=== PATIENT | female | born 1955 | race Caucasian/White ===

== ENCOUNTER 2018-10-18 07:18 | Emergency (ER) | payer OTHER ==
[~2018-10-18] VITALS: Ht 160 cm; Wt 58.1 kg
[2018-10-18] MEDS ORDERED: ALBU0.0912 IH (07:27)
[2018-10-18] MEDS ORDERED: BECL10.62 IH (07:27)
[2018-10-18 07:29] VITALS: BP 130/54
[2018-10-18 08:34] VITALS: BP 112/55
--- NOTE | 2018-10-18 08:39 | NUR ---
Patient discharged with v/s stable. Written and verbal after care instructions given and explained. Patient alert, oriented and verbalized understanding of instructions. Ambulatory with steady gait. All questions addressed prior to discharge. ID band removed. Patient advised to follow up with PMD. Rx of Motrin 600mg, Prednisone 20mg, and Azithromycin 250 mg given. Patient educated on indication of medication including possible reaction and side effects. Opportunity to ask questions provided and answered.
== END 2018-10-18 08:39 | disposition home or self-care (01) ==
LOC: MED 07:18
DX: J18.9 Pneumonia, unspecified organism (principal); J44.9 Chronic obstructive pulmonary disease, unspecified; K21.9 Gastro-esophageal reflux disease without esophagitis; Z79.899 Other long term (current) drug therapy
CPT/HCPCS: 71045; 99283; Q0092

== ENCOUNTER 2018-11-12 07:34 | Emergency (ER) | payer OTHER ==
[~2018-11-12] VITALS: Ht 147.3 cm; Wt 43.1 kg
[~2018-11-12 07:34] MED LIST: ALBU0.0912 IH; BECL10.62 IH
--- NOTE | 2018-11-12 07:40 | NUR ---
PATIENT AMBULATED TO ER BED 7
[2018-11-12 07:54] VITALS: BP 141/75
[2018-11-12] MEDS ORDERED: OMEP20TC10 PO (08:00)
[2018-11-12] MEDS ORDERED: CHOL50005 PO (08:00)
[2018-11-12] MEDS ORDERED: IBUP-2213 PO (08:00)
--- NOTE | 2018-11-12 08:00 | NUR ---
BIB FRIEND. AAO X4 C/O REPEATED DIARRHEA X 2 DAYS WITH SUPRAUMBILICAL BURNING PAIN, NAUSEA, VOMITING TODAY. PT STATES SHE VOMITED X 3, DIARRHEA X2 TODAY. PT DENIES FEVER, SOB. ABDOMEN SOFT, NON TENDER. 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 ER TO EVALUATE PT.
--- NOTE | 2018-11-12 08:09 | NUR ---
DR LAGUNA AT BEDSIDE FOR PT EVALUATION
--- NOTE | 2018-11-12 08:11 | NUR ---
PT UNABLE TO GIVE URINE SPECIMEN AT THIS TIME. WILL TRY AGAIN LATER
[2018-11-12] MEDS ORDERED: NACL 0.9% 1,000 ML IV SCH (08:24)
[2018-11-12] MEDS ORDERED: MORPHINE SULFATE 2 MG/ML SYR IVP ONE (08:25)
[2018-11-12] MEDS ORDERED: ONDANSETRON 4 MG/2 ML VIAL IVP ONE (08:25)
--- NOTE | 2018-11-12 09:02 | NUR ---
INITIATED IV TO RAC 20G, INTACT AND PATENT. BLOOD DRAW ORDERED. CALLED LAB FOR TREATER. PT TOLERATED WELL. IV MEDICATIONS AND IV FLUIDS GIVEN ORDERED.
--- NOTE | 2018-11-12 09:10 | NUR ---
PT STATES SHE CAN'T GIVE URINE SPECIMEN AT THIS TIME.
--- NOTE | 2018-11-12 09:26 | NUR ---
PT AMBULATED TO THE BATHROOM WITH STEADY GAIT. ACCOMPANIED BY FRIEND
[2018-11-12 09:33] LABS: ANION GAP 12.6 (8-16); CARBON DIOXIDE 27.9 mmol/L (21-32); CREATININE 0.8 mg/dL (0.6-1.3); POTASSIUM 4.5 mmol/L (3.5-5.1)
[2018-11-12 09:46] LABS: ALBUMIN 3.5 g/dL (3.4-5.0); TOTAL BILIRUBIN 0.4 mg/dL (0.0-1.0)
[2018-11-12 09:55] LABS: BASOPHILS % (AUTO) 0.5 % (0.0-2.0); EOSINOPHILS % (AUTO) 0.2 % (0.0-4.0); HEMATOCRIT 38.1 % (36-48); HEMOGLOBIN 12.1 g/dL (12.0-16.0); LYMPHOCYTES # (AUTO) 0.9 K/uL (2.5-16.5); LYMPHOCYTES % (AUTO) 18.2 % (20.5-51.1); MEAN CORPUSCULAR HEMOGLOBIN 25 pg (27-31); MEAN CORPUSCULAR HGB CONC 32 g/dL (33-37); MEAN CORPUSCULAR VOLUME 79.7 fL (80-94); MONOCYTES # (AUTO) 0.3 K/uL (0.8-1.0); MONOCYTES % (AUTO) 5.6 % (1.7-9.3); NEUTROPHILS # (AUTO) 3.9 K/uL (1.8-7.7); NEUTROPHILS % (AUTO) 75.5 % (42.2-75.2); PLATELET COUNT (AUTO) 185 K/uL (140-450); RED BLOOD CELL COUNT(AUTO) 4.78 MIL/uL (4.20-5.40); RED CELL DISTRIBUTION WIDTH 14.6 % (11.6-13.7); WHITE BLOOD COUNT (AUTO) 5.1 K/uL (4.8-10.8)
--- NOTE | 2018-11-12 10:30 | NUR ---
PT LAYING DOWN. AAO X4. EVEN AND UNLABORED BREATHING. NO SIGNS AND SYMPTOMS OF DISTRESS NOTED.
--- NOTE | 2018-11-12 11:00 | NUR ---
FLUID PO TRIAL PER DR LAGUNA. PT TOLERATED WELL.
--- NOTE | 2018-11-12 11:16 | NUR ---
PT TOLERATED FLUIDS WELL. NO EPISODES OF VOMITING NOTED.
[2018-11-12 11:40] VITALS: BP 113/58
[2018-11-12 12:02] LABS: APPEARANCE,URINE CLEAR (CLEAR); BILIRUBIN,URINE NEGATIVE (NEGATIVE); BLOOD, URINE NEGATIVE (NEGATIVE); LEUKOCYTE ESTERASE ,URINE NEGATIVE (NEGATIVE); NITRITE, URINE NEGATIVE (NEGATIVE); UGLUCOSE NEGATIVE (NEGATIVE)
[2018-11-12 12:05] LABS: COLOR,URINE STRAW (YELLOW)
== END 2018-11-12 11:40 | disposition home or self-care (01) ==
LOC: MED 07:34
DX: K52.9 Noninfective gastroenteritis and colitis, unspecified (principal); R11.2 Nausea with vomiting, unspecified; J44.9 Chronic obstructive pulmonary disease, unspecified; K21.9 Gastro-esophageal reflux disease without esophagitis; Z79.899 Other long term (current) drug therapy
CPT/HCPCS: 36415; 74176; 80053; 81003; 81025; 82150; 83690; 84484; 85025; 96361; 96374; 96375; 99284; J2270; J2405; J7030